=== PATIENT | female | born 1965 | race Caucasian/White ===

== ENCOUNTER 2023-07-17 05:39 | Inpatient (IN) | payer BC ==
[2023-07-12 17:00] LABS: #Eosinphils 0.1 10x3/uL (0.0-0.5); #Monocytes 0.4 10x3/uL (0.0-1.1); #Neutrophils 3.7 10x3/uL (1.5-8.4); %Basophils 0.6 % (0.0-2.0); %Eosinophils 1.1 % (0.0-6.0); %Lymphocytes 22.7 % (18.0-47.0); %Monocytes 7.2 % (0.0-10.0); %Neutrophils 68.2 % (40.0-75.0); Hematocrit 44.4 % (34.9-44.5); Hemoglobin 14.7 g/dL (12.0-15.5); Mean Corpuscular HGB CONC 33.1 g/dL (32.0-36.0); Mean Corpuscular Hemoglobin 29.1 pg (27.0-33.0); Mean Corpuscular Volume 87.9 fl (81.6-98.3); Platelet Count 303 10x3/uL (150-450); RBC Distribution Width 14.1 % (11.5-14.5); Red Blood Cell (RBC) Count 5.05 10x6/uL (3.90-5.03); White Blood Cell (WBC) Count 5.4 10x3/uL (3.5-10.5)
[2023-07-12 17:26] LABS: Anion Gap 14 mmol/L (10-20); BUN (Urea Nitrogen) 11 mg/dL (9.8-20.1); Calc. Creatinine Clearance 0 mL/min (70-130); Calcium 10.1 mg/dL (7.8-10.44); Carbon Dioxide 29 mmol/L (22-29); Chloride 103 mmol/L (98-107); Estimated GFR 77; Glucose 81 mg/dL (70-105); INR-International Normal Ratio 0.9; Prothrombin Time 9.8 sec (9.5-12.1); Sodium 142 mmol/L (136-145)
[2023-07-12 17:35] LABS: Bilirubin Neg (Negative); Blood, Urine Negative (Negative); Clarity Clear (Clear); Glucose, Urine (Dipstick) Normal (Negative); Ketone, Urine Negative (Negative); Leukocyte 25 (Negative); Nitrite Negative (Negative); Protein, Urine (Dipstick) Negative (Neg-Trace); Urobilinogen Normal mg/dL (Less than 2); pH, Urine 6.5 (5.0-9.0)
[2023-07-17] MEDS ORDERED: Sodium Chloride 0.9% 100 ML ONE ×2 (06:05→07:11)
[2023-07-17] MEDS ORDERED: Tranexamic Acid 1,000 MG/10 ML VIAL ONE ×2 (06:05→09:56)
[2023-07-17] MEDS ORDERED: Vancomycin 1 GM/200 ML (FROZEN) BAG ONE (06:05)
[2023-07-17] MEDS ORDERED: Vancomycin 1 GM VIAL ONE (06:24)
[2023-07-17] MEDS ORDERED: Bupivacaine PF 0.5% 30 ML VIAL ONE ×2 (06:25→06:45)
[2023-07-17] MEDS ORDERED: Tobramycin Sulfate 1.2 GM VIAL ONE (06:25)
[2023-07-17] MEDS ORDERED: EPINEPHrine 1 MG/ML VIAL ONE (06:44)
[2023-07-17] MEDS ORDERED: Lidocaine 1% (PF) 30 ML VIAL ONE (06:45)
[2023-07-17] MEDS ORDERED: Midazolam HCl 2 mg/2 ml Vial ONE ×2 (06:45→10:06)
[2023-07-17] MEDS ORDERED: fentaNYL 50 mcg/mL 1 mL Vial ONE (06:45)
[2023-07-17] MEDS ORDERED: CEFAZOLIN 2 GM VIAL ONE (07:10)
[2023-07-17] MEDS ORDERED: PROPOFOL 20 ML ONE (07:20)
[2023-07-17] MEDS ORDERED: Ondansetron PF 4 MG/2 ML Vial ONE (07:31)
[2023-07-17] MEDS ORDERED: Dexamethasone 4 mg/ml Vial ONE (07:31)
[2023-07-17] MEDS ORDERED: Ondansetron HCl/PF 4 MG/2 ML Vial IVP PRN (07:44)
[2023-07-17] MEDS ORDERED: HYDROmorphone 2 MG/ML VIAL SLOW IVP PRN (07:44)
[2023-07-17] MEDS ORDERED: Ondansetron PF 4 MG/2 ML Vial IVP PRN ×3 (07:45→09:54)
[2023-07-17] MEDS ORDERED: diphenhydrAMINE 50 MG/ML VIAL IVP PRN (07:45)
[2023-07-17] MEDS ORDERED: diphenhydrAMINE 50 MG/ML VIAL IM PRN (07:45)
[2023-07-17] MEDS ORDERED: Communication Order-Pharmacy FS SCH (07:45)
[2023-07-17] MEDS ORDERED: HYDROmorphone/PF 10 MG in Sodium Chloride 0.9% 99 ML IV PRN (07:45)
[2023-07-17] MEDS ORDERED: diphenhydrAMINE 25 MG CAP PO PRN ×2 (07:45→09:54)
[2023-07-17] MEDS ORDERED: Naloxone HCl 0.4 mg/ml Vial IV PRN (07:45)
[2023-07-17] MEDS ORDERED: Promethazine HCl 25 MG/ML VIAL IM PRN ×3 (07:45→09:54)
[2023-07-17] MEDS ORDERED: HYDROmorphone 2 MG/ML VIAL ONE (07:49)
[2023-07-17] MEDS ORDERED: Glycopyrrolate 0.2 MG/ML 5 ML SYRINGE ONE (07:54)
[2023-07-17] MEDS ORDERED: Ropivacaine 0.2% 550 ML 550 ML NERVE BLCK SCH (08:00)
[2023-07-17] MEDS ORDERED: Zolpidem Tartrate 5 MG TAB PO PRN ×2 (08:00→09:54)
[2023-07-17] MEDS ORDERED: Ibuprofen 600 MG TAB PO PRN (08:01)
[2023-07-17] MEDS ORDERED: Acetaminophen 325 MG TAB PO PRN (09:54)
[2023-07-17] MEDS ORDERED: Tranexamic Acid 1,000 MG in Sodium Chloride 0.9% 100 ML IVPB SCH (10:00)
[2023-07-17] MEDS ORDERED: HYDROmorphone 0.5 MG/0.5 ML SYRINGE ONE (10:18)
[2023-07-17] MEDS: Sodium Chloride 0.9% 1,000 ML IV SCH ×2 (13:45→20:36)
[2023-07-17 15:16] VITALS: BMI 23.7
[2023-07-17] MEDS: CEFAZOLIN 2 GM in Sodium Chloride 0.9% 100 ML IVPB SCH ×2 (16:01→22:57)
[2023-07-17] MEDS ORDERED: Vancomycin (BATCH) 1.5 GM in Premix 1 BAG IVPB SCH (18:00)
[2023-07-17] MEDS: Acetaminophen 500 MG TAB PO PRN (20:34)
[2023-07-17] MEDS: Aspirin 81 mg Enteric Coated Tablet PO SCH (20:36)
[2023-07-17] MEDS: Ferrous Gluconate 324 MG TAB PO SCH (20:36)
[2023-07-17] MEDS: Senokot S 8.6-50 MG TAB PO SCH (20:37)
[2023-07-17] MEDS ORDERED: Famotidine 20 MG TAB PO SCH (23:00)
[2023-07-18 05:58] LABS: Hematocrit 36.7 % (36.0-47.0); Hemoglobin 11.8 g/dL (12.0-16.0); Mean Corpuscular HGB CONC 32.2 g/dL (32.0-36.0); Mean Corpuscular Hemoglobin 28.9 pg (27.0-31.0); Mean Platelet Volume 11.1 fL (7.4-10.4); Platelet Count 242 10x3/uL (130-400); Red Blood Cell (RBC) Count 4.08 mill/uL (4.20-5.40); White Blood Cell (WBC) Count 7.2 10x3/uL (4.8-10.8)
[2023-07-18] MEDS: Sodium Chloride 0.9% 1,000 ML IV SCH ×2 (10:02→17:07)
[2023-07-18] MEDS: Multivitamin W/ Minerals 1 TAB PO SCH (10:03)
[2023-07-18] MEDS: CeleCOXIB 100 MG CAP PO SCH (10:03)
[2023-07-18] MEDS: Senokot S 8.6-50 MG TAB PO SCH ×2 (10:03→21:34)
[2023-07-18] MEDS: Aspirin 81 mg Enteric Coated Tablet PO SCH ×2 (10:04→21:34)
[2023-07-18] MEDS: Ferrous Gluconate 324 MG TAB PO SCH (10:05)
[2023-07-18] MEDS ORDERED: Polyethylene Glycol 3350 17 GM Packet PO SCH (11:15)
[2023-07-18] MEDS: Calcium Carbonate 500 MG ChewTAB PO PRN (21:34)
[2023-07-19] MEDS: Sodium Chloride 0.9% 1,000 ML IV SCH (02:15)
[2023-07-19 04:33] LABS: Hematocrit 36.2 % (36.0-47.0); Mean Corpuscular HGB CONC 33.1 g/dL (32.0-36.0); Mean Corpuscular Volume 90.5 fl (78.0-98.0); Mean Platelet Volume 10.6 fL (7.4-10.4); Platelet Count 239 10x3/uL (130-400); RBC Distribution Width 14.2 % (11.5-14.5); White Blood Cell (WBC) Count 6.8 10x3/uL (4.8-10.8)
[2023-07-19] MEDS ORDERED: Polyethylene Glycol 3350 17 GM Packet PO SCH (09:00)
[2023-07-19] MEDS: Aspirin 81 mg Enteric Coated Tablet PO SCH (09:04)
[2023-07-19] MEDS: Senokot S 8.6-50 MG TAB PO SCH (09:04)
[2023-07-19] MEDS: CeleCOXIB 100 MG CAP PO SCH (09:04)
[2023-07-19] MEDS: Multivitamin W/ Minerals 1 TAB PO SCH (09:10)
[2023-07-19] MEDS: Acetaminophen 500 MG TAB PO PRN (10:06)
[2023-07-19] MEDS: Calcium Carbonate 500 MG ChewTAB PO PRN (10:53)
[2023-07-19 12:42] VITALS: BP 149/82; TEMP 98.7
== END 2023-07-19 12:50 | disposition home or self-care (01) | DRG 468 ==
LOC: SDC 05:39 → SURG A 09:54 → OBSVTOIN 07-18 11:08
PROVIDERS: ADMIT Orthopaedic Surgery; ATTEND Orthopaedic Surgery
PROC: 0SWT0JZ Revision of Synthetic Substitute in Right Knee Joint, Femoral Surface, Open Approach (ICD-10-PCS; principal; 2023-07-17)
PROC: 3E033XZ Introduction of Vasopressor into Peripheral Vein, Percutaneous Approach (ICD-10-PCS; 2023-07-17)
DX: T84.89XA Other specified complication of internal orthopedic prosthetic devices, implants and grafts, initial encounter (principal); M19.90 Unspecified osteoarthritis, unspecified site; Z90.710 Acquired absence of both cervix and uterus; Z98.890 Other specified postprocedural states; Z83.3 Family history of diabetes mellitus; Z82.49 Family history of ischemic heart disease and other diseases of the circulatory system
CPT/HCPCS: 36415; 80048; 81003; 85025; 85027; 85610; 86850; 86900; 86901; 87081; 96365; 96366; 96375; A4306; C1713; C1776; G0378; J0171; J1100; J1170; J2001; J2250; J2405; J2704; J2795; J3010; J3260; J3370; J3370-JW; J3490; J7050; S0020

== ENCOUNTER 2023-12-24 12:28 | Outpatient (CLI) | payer BC ==
[2023-12-24 14:59] LABS: #Basophils 0.04 10x3/uL (0.0-0.2); #Eosinphils 0.12 10x3/uL (0.0-0.5); #Monocytes 0.31 10x3/uL (0.0-1.1); #Neutrophils 2.71 10x3/uL (1.5-8.4); %Basophils 0.9 % (0.0-2.0); %Eosinophils 2.6 % (0.0-6.0); %Lymphocytes 30.7 % (18.0-47.0); %Monocytes 6.7 % (0.0-10.0); %Neutrophils 58.7 % (40.0-75.0); Hematocrit 43.2 % (34.9-44.5); Hemoglobin 14.5 g/dL (12.0-15.5); Mean Corpuscular HGB CONC 33.6 g/dL (32.0-36.0); Mean Corpuscular Hemoglobin 29.5 pg (27.0-33.0); Mean Platelet Volume 11.5 fL (7.4-10.4); Platelet Count 303 10x3/uL (150-450); Red Blood Cell (RBC) Count 4.91 10x6/uL (3.90-5.03); White Blood Cell (WBC) Count 4.6 10x3/uL (3.5-10.5)
[2023-12-24 15:15] LABS: ALT (SGPT) 13 U/L (8-55); AST (SGOT) 19 U/L (5-34); Albumin 4.3 g/dL (3.5-5.0); Alkaline Phosphatase 77 U/L (40-110); Anion Gap 15 mmol/L (10-20); BUN (Urea Nitrogen) 15 mg/dL (9.8-20.1); Bilirubin, Total 0.5 mg/dL (0.2-1.2); Calc. Creatinine Clearance 0 mL/min (70-130); Calcium 9.6 mg/dL (7.8-10.44); Carbon Dioxide 25 mmol/L (22-29); Chloride 105 mmol/L (98-107); Estimated GFR 64; Globulin 2.9 g/dL (2.4-3.5); Glucose 115 mg/dL (70-105); Potassium 3.9 mmol/L (3.5-5.1); Protein, Total 7.2 g/dL (6.0-8.3); Sodium 141 mmol/L (136-145)
== END 2023-12-24 12:29 | disposition home or self-care (01) ==
LOC: LABBT 12:28
PROVIDERS: ATTEND Surgery
DX: Z01.818 Encounter for other preprocedural examination (principal); K43.2 Incisional hernia without obstruction or gangrene
CPT/HCPCS: 80053; 85025; 93005; 93010

== ENCOUNTER 2023-12-26 10:27 | Observation (INO) | payer BC ==
[2023-12-24 13:05] VITALS: BMI 23.9
[2023-12-26] MEDS ORDERED: Sodium Chloride 0.9% 100 ML ONE (11:10)
[2023-12-26] MEDS ORDERED: Lidocaine 1% MPF 2 ML VIAL ONE (11:10)
[2023-12-26] MEDS ORDERED: CEFAZOLIN 2 GM VIAL ONE (11:10)
[2023-12-26] MEDS ORDERED: PROPOFOL 20 ML ONE (11:52)
[2023-12-26] MEDS ORDERED: Dexamethasone 4 mg/ml Vial ONE (11:52)
[2023-12-26] MEDS ORDERED: Rocuronium Bromide 10 MG/ML (10ML VIAL) ONE (11:52)
[2023-12-26] MEDS ORDERED: Lidocaine 2% PF 5 ML VIAL ONE (11:52)
[2023-12-26] MEDS ORDERED: fentaNYL PF 100 MCG/2 ML SYRINGE ONE (11:52)
[2023-12-26] MEDS ORDERED: Ondansetron PF 4 MG/2 ML Vial ONE (11:52)
[2023-12-26] MEDS ORDERED: Midazolam HCl 2 mg/2 ml Vial ONE ×3 (11:52→14:46)
[2023-12-26] MEDS ORDERED: Bupivacaine 0.25% HCL 30 ML VIAL ONE (12:07)
[2023-12-26] MEDS ORDERED: EPINEPHrine 1 MG/ML VIAL ONE (12:07)
[2023-12-26] MEDS ORDERED: HYDROmorphone 2 MG/ML VIAL ONE (12:10)
[2023-12-26] MEDS ORDERED: SUGAMMADEX SODIUM 200 MG/2 ML VIAL ONE (12:41)
[2023-12-26] MEDS ORDERED: Ondansetron PF 4 MG/2 ML Vial IVP PRN ×2 (13:41→14:08)
[2023-12-26] MEDS ORDERED: diphenhydrAMINE 25 MG CAP PO PRN (13:41)
[2023-12-26] MEDS ORDERED: diphenhydrAMINE 50 MG/ML VIAL IM PRN (13:41)
[2023-12-26] MEDS ORDERED: HYDROmorphone/PF 10 MG in Sodium Chloride 0.9% 99 ML IV PRN (13:41)
[2023-12-26] MEDS ORDERED: Naloxone HCl 0.4 mg/ml Vial IV PRN (13:41)
[2023-12-26] MEDS ORDERED: Promethazine HCl 25 MG/ML VIAL IM PRN ×2 (13:41→14:08)
[2023-12-26] MEDS ORDERED: Communication Order-Pharmacy FS SCH (13:45)
[2023-12-26] MEDS ORDERED: Ipratropium/Albuterol 3 ML NEB NEB PRN (14:08)
[2023-12-26] MEDS ORDERED: Glucagon 1 MG/ML KIT IM PRN (14:08)
[2023-12-26] MEDS ORDERED: Dextrose 5% in Water 1,000 ML IV PRN (14:08)
[2023-12-26] MEDS ORDERED: Calcium Carbonate 500 MG ChewTAB PO PRN (14:08)
[2023-12-26] MEDS ORDERED: Acetaminophen 325 MG TAB PO PRN (14:08)
[2023-12-26] MEDS ORDERED: Dextrose 50% Abboject 50 ML SYRINGE SLOW IVP PRN (14:08)
[2023-12-26] MEDS ORDERED: hydrALAZINE 20 MG/ML VIAL SLOW IVP PRN (14:08)
[2023-12-26] MEDS ORDERED: Mag-Al 1200 mg/1200 mg/30 ML UDCUP PO PRN (14:08)
[2023-12-26] MEDS ORDERED: D5 1/2 NS w/20 mEq KCL 1,000 ML ONE (14:26)
[2023-12-26] MEDS ORDERED: HYDROmorphone 0.5 MG/0.5 ML SYRINGE ONE (14:41)
[2023-12-26] MEDS: D5 1/2 NS w/20 mEq KCL 1,000 ML IV SCH (14:56)
[2023-12-26] MEDS ORDERED: diphenhydrAMINE 25 MG CAP ONE (15:52)
[2023-12-26] MEDS: Famotidine/PF 20 mg/2ml Vial SLOW IVP SCH (19:40)
[2023-12-26] MEDS: Famotidine 20 MG TAB PO SCH (19:41)
[2023-12-26] MEDS: Docusate 100 MG CAP PO SCH (19:41)
[2023-12-26] MEDS: diphenhydrAMINE 50 MG/ML VIAL IVP PRN (19:44)
[2023-12-27 04:33] LABS: #Basophils Less than 0.03 10x3/uL (0.0-0.2); #Eosinphils Less than 0.03 10x3/uL (0.0-0.7); %Basophils 0.3 % (0.0-1.0); %Lymphocytes 12.9 % (21.0-51.0); %Monocytes 7.4 % (0.0-10.0); %Neutrophils 79.1 % (42.0-75.0); Hematocrit 41.8 % (36.0-47.0); Hemoglobin 13.7 g/dL (12.0-16.0); Mean Corpuscular HGB CONC 32.8 g/dL (32.0-36.0); Mean Corpuscular Hemoglobin 29.4 pg (27.0-31.0); Mean Corpuscular Volume 89.7 fL (78.0-98.0); Mean Platelet Volume 10.5 fL (7.4-10.4); Platelet Count 278 10x3/uL (130-400); Red Blood Cell (RBC) Count 4.66 mill/uL (4.20-5.40)
[2023-12-27 04:34] VITALS: BP 119/75
[2023-12-27 04:51] LABS: ALT (SGPT) 12 U/L (8-55); AST (SGOT) 17 U/L (5-34); Albumin 3.7 g/dL (3.5-5.0); Alkaline Phosphatase 69 U/L (40-110); Anion Gap 12 mmol/L (10-20); BUN (Urea Nitrogen) 8 mg/dL (9.8-20.1); Bilirubin, Total 0.5 mg/dL (0.2-1.2); Calc. Creatinine Clearance 88 mL/min (70-130); Calcium 9.8 mg/dL (7.8-10.44); Carbon Dioxide 26 mmol/L (22-29); Chloride 104 mmol/L (98-107); Estimated GFR 82; Globulin 3.1 g/dL (2.4-3.5); Glucose 130 mg/dL (70-105); Potassium 4.5 mmol/L (3.5-5.1); Protein, Total 6.8 g/dL (6.0-8.3); Sodium 137 mmol/L (136-145)
[2023-12-27] MEDS ORDERED: DC PCA Order Set 1 EACH FS PRN (07:41)
[2023-12-27 08:34] VITALS: TEMP 97.7
[2023-12-27] MEDS: Enoxaparin 40 MG (0.4 mL) SYRINGE SC SCH (10:11)
[2023-12-27] MEDS: Ibuprofen 800 MG TAB PO SCH (10:12)
[2023-12-27] MEDS: Cyclobenzaprine 10 MG TAB PO PRN (10:12)
== END 2023-12-27 14:00 | disposition home or self-care (01) ==
LOC: SDC 10:27 → SJJU 17:04
PROVIDERS: ADMIT Surgery; ATTEND Surgery
PROC: 0WUF4JZ Supplement Abdominal Wall with Synthetic Substitute, Percutaneous Endoscopic Approach (ICD-10-PCS; principal; 2023-12-27)
DX: K43.9 Ventral hernia without obstruction or gangrene (principal); K43.2 Incisional hernia without obstruction or gangrene; K64.9 Unspecified hemorrhoids; M19.90 Unspecified osteoarthritis, unspecified site; J30.2 Other seasonal allergic rhinitis; Z79.899 Other long term (current) drug therapy; Z90.710 Acquired absence of both cervix and uterus; Z98.890 Other specified postprocedural states; Z91.041 Radiographic dye allergy status; Z88.2 Allergy status to sulfonamides; Z88.5 Allergy status to narcotic agent; Z88.1 Allergy status to other antibiotic agents; Z88.8 Allergy status to other drugs, medicaments and biological substances
CPT/HCPCS: 36415; 80053; 85025; C1781; J0171; J0665; J1100; J1170; J1200; J1650; J2001; J2250; J2405; J2704; J3480; J3490

== ENCOUNTER 2023-12-30 10:58 | Emergency (ER) | payer BC ==
[2023-12-30 12:42] LABS: #Basophils 0.03 10x3/uL (0.0-0.2); %Basophils 0.4 % (0.0-1.0); %Eosinophils 4.9 % (0.0-10.0); %Neutrophils 64.4 % (42.0-75.0); Hemoglobin 16.9 g/dL (12.0-16.0); Mean Corpuscular HGB CONC 33.1 g/dL (32.0-36.0); Mean Corpuscular Hemoglobin 28.5 pg (27.0-31.0); Mean Corpuscular Volume 85.9 fL (78.0-98.0); Mean Platelet Volume 10.6 fL (7.4-10.4); Platelet Count 318 10x3/uL (130-400); RBC Distribution Width 13.8 % (11.5-14.5); Red Blood Cell (RBC) Count 5.94 mill/uL (4.20-5.40)
[2023-12-30] MEDS ORDERED: Ondansetron PF 4 MG/2 ML Vial ONE (12:52)
[2023-12-30] MEDS ORDERED: methylPREDNISolone Sod Succ 40 MG VIAL ONE (12:52)
[2023-12-30] MEDS ORDERED: diphenhydrAMINE 50 MG/ML VIAL ONE (12:52)
[2023-12-30] MEDS ORDERED: Famotidine/PF 20 mg/2ml Vial ONE (12:53)
[2023-12-30] MEDS ORDERED: Iopamidol-370 76% 500 ML MDV (1 ML CHARGE) ONE (12:58)
[2023-12-30 13:02] LABS: ALT (SGPT) 15 U/L (8-55); AST (SGOT) 25 U/L (5-34); Albumin 4.3 g/dL (3.5-5.0); Alkaline Phosphatase 87 U/L (40-110); Anion Gap 17 mmol/L (10-20); BUN (Urea Nitrogen) 9 mg/dL (9.8-20.1); Bilirubin, Total 0.7 mg/dL (0.2-1.2); Calc. Creatinine Clearance 0 mL/min (70-130); Calcium 10.9 mg/dL (7.8-10.44); Carbon Dioxide 26 mmol/L (22-29); Chloride 103 mmol/L (98-107); Estimated GFR 74; Globulin 4.3 g/dL (2.4-3.5); Glucose 92 mg/dL (70-105); Lipase 16 U/L (8-78); Potassium 4.1 mmol/L (3.5-5.1); Protein, Total 8.6 g/dL (6.0-8.3); Sodium 142 mmol/L (136-145)
[2023-12-30 16:42] LABS: Bacteria/HPF None Seen HPF (None Seen); Bilirubin Negative (Negative); Blood, Urine Negative (Negative); CAUTI Indications for Culture Acute Hematuria; Clarity Clear (Clear); Glucose, Urine (Dipstick) Normal (Negative); Ketone, Urine Negative (Negative); Leukocyte Negative Leu/uL (Negative); Nitrite Negative (Negative); Protein, Urine (Dipstick) Negative (Neg-Trace); RBC/HPF 0-3 HPF (0-3); Specific Gravity, Urine 1.036 (1.002-1.036); Squamous Epithelial 0-3 HPF (0-3); Urobilinogen Normal mg/dL (Less than 2); WBC/HPF 0-3 HPF (0-3); pH, Urine 7.5 (5.0-9.0)
[2023-12-30 17:02] LABS: Urine Culture Reflex No No
[2023-12-30 17:14] LABS: Lactic Acid 2.1 mmol/L (0.5-2.2)
[2023-12-30] MEDS ORDERED: Cyclobenzaprine 10 MG TAB ONE (18:04)
== END 2023-12-30 17:55 | disposition home or self-care (01) ==
LOC: ERS 10:58
DX: K59.00 Constipation, unspecified (principal); K91.873 Postprocedural seroma of a digestive system organ or structure following other procedure
CPT/HCPCS: 36415; 36416; 74177; 80053; 81001; 83605; 83690; 85025; 96361; 96374; 96375; J1200; J2405; J2920; Q9967; S0028